=== PATIENT | male | born 1990 | race Caucasian/White ===

== ENCOUNTER 2020-03-06 14:35 | Emergency (ER) | payer BC, OTHER ==
--- NOTE | 2020-03-06 14:39 | ER Document Report ---
ED Medical Screen (RME) - General Chief Complaint: Shoulder Injury Stated Complaint: LEFT SHOULDER INJURY Time Seen by Provider: 03/06/20 14:37 Notes: HPI: 29-year-old [id number] male left shoulder injury fell with arm outstretched while skating. States he believes he has dislocated both shoulders previously but they usually pop back in but did not this time PHYSICAL EXAMINATION: Clinically appears to have an anterior dislocation with deficit over the left shoulder girdle I have greeted and performed a rapid initial assessment of this patient. A comprehensive ED assessment and evaluation of the patient, analysis of test r esults and completion of medical decision making process will be conducted by an additional ED providers.
[2020-03-06] MEDS ORDERED: KETAMINE HCL INJ 500 MG/10 ML VIAL IV ONE (15:09)
--- NOTE | 2020-03-06 15:09 | ER Document Report ---
ED Extremity Problem, Upper - General Chief Complaint: Shoulder Injury Stated Complaint: LEFT SHOULDER INJURY Time Seen by Provider: 03/06/20 14:37 Primary Care Provider: EDY AVELAR MD [ACTIVE STAFF] - Follow up as needed Mode of Arrival: Ambulatory Information source: Patient Notes: ED Medical Screen ([facility] notes) - General Chief Complaint: Shoulder Injury Stated Complaint: LEFT SHOULDER INJURY Time Seen by Provider: 03/06/20 14:37 Notes: HPI: 29-year-old [id number] male left shoulder injury fell with arm outstretched while skating. States he believes he has dislocated both shoulders previously but they usually pop back in but did not this time PHYSICAL EXAMINATION: Clinically appears to have an anterior dislocation with deficit over the left shoulder girdle MY NOTES 29-year-old male who drove himself [facility] [employer] [facility] where he was using a skateboard and fell dislocating his left shoulder. Patient reports he is done this multiple times at least 50 times in the past and he self reduced it. Today the shoulder did not reduce. His mother Alanna reports he has been stating since he was 4 years old. 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 This occurred approximately 1300. Patient denied any LOC. He has full pulses good capillary refill and good sensation to the fingers wrist elbow but obvious deformity to the left shoulder. X-ray reveals anterior dislocation. No obvious fractures. TRAVEL OUTSIDE OF THE [place] IN LAST 30 DAYS: No - HPI Patient complains to provider of: Injury, Swelling, Left, Shoulder Onset: Just prior to arrival Recent injury: No Where: Outdoors - Related Data Allergies/Adverse Reactions: No Known Allergies Allergy (Verified 03/06/20 16:12) Past Medical History - General Information source: Patient, Parent - mother at bedside - Social History Smoking Status: Current Every Day Smoker - Smoker 1 pack/day since he was 16 Cigarette use (# per day): Yes Chew tobacco use (# tins/day): No Smoking Education Provided: Yes Frequency of alcohol use: Occasional - Beer drinker he took a Tylenol this morning because of headache after drinking beer last night Drug Abuse: Marijuana Lives with: Family Family History: Reviewed & Not Pertinent Patient has suicidal ideation: No Patient has homicidal ideation: No Review of Systems - Review of Systems Constitutional: No symptoms reported EENT: No symptoms reported Cardiovascular: No symptoms reported Respiratory: No symptoms reported Gastrointestinal: No symptoms reported Genitourinary: No symptoms reported Male Genitourinary: No symptoms reported Musculoskeletal: See HPI, Joint pain - Left shoulder full pulses good capillary refill as per HPI., Joint swelling - Left shoulder dislocation, Muscle pain Skin: No symptoms reported Hematologic/Lymphatic: No symptoms reported Neurological/Psychological: No symptoms reported Physical Exam - Vital signs Vitals: Temp Pulse Resp BP Pulse Ox 98.1 F 83 20 123/79 98 03/06/20 14:43 03/06/20 14:43 03/06/20 14:43 03/06/20 14:43 03/06/20 14:43 Interpretation: Normal - General General appearance: Appears well, Alert - HEENT Head: Normocephalic, Atraumatic Eyes: Normal Pupils: PERRL - Respiratory Respiratory status: No respiratory distress Chest status: Nontender Breath sounds: Normal Chest palpation: Normal - Cardiovascular Rhythm: Regular Heart sounds: Normal auscultation Murmur: No - Abdominal Inspection: Normal Distension: No distension Bowel sounds: Normal Tenderness: Nontender Organomegaly: No organomegaly - Rectal Prostate: Other - deferred - Genitourinary Scrotum: Other - deferred - Back Back: Normal, Nontender - Extremities General upper extremity: Tender - Limited range of motion left shoulder because of dislocation anteriorly full pulses good cap refill full range of motion wrist fingers elbow and also full range of motion of right upper extremity with good sensation pulses, Normal color, Normal temperature General lower extremity: Normal inspection, Nontender, Normal color, Normal ROM, Normal temperature, Normal weight bearing. No: Marcus's sign - Neurological Neuro grossly intact: Yes Cognition: Normal Orientation: AAOx4 Estefanía Coma Scale Eye Opening: Spontaneous [place] Coma Scale Verbal: Oriented [place] Coma Scale Motor: Obeys Commands [place] Coma Scale Total: 15 Speech: Normal Motor strength normal: LUE, RUE, LLE, RLE Sensory: Normal - Psychological Associated symptoms: Normal affect, Normal mood - Skin Skin Temperature: Warm Skin Moisture: Dry Skin Color: Normal Course - Vital Signs Vital signs: Temp Pulse Resp BP Pulse Ox 98.1 F 66 19 116/84 97 03/06/20 14:43 03/06/20 16:10 03/06/20 16:56 03/06/20 16:56 03/06/20 16:56 Procedures - Joint Reduction/Fracture Care Left Shoulder Time completed: 16:07 Consent obtained: Yes Conscious sedation: Yes Pre-procedure NV exam: Yes Fracture: Other - no obvious fx Post-procedure NV exam: Yes Post-reduction x-ray: Joint reduced Complications: No Critical Care Note - Critical Care Note Comments: Repeat shoulder reveals reduced shoulder on left around 1600. Discharge - Discharge Clinical Impression: shoulder reduction left Dislocation of left shoulder joint Qualifiers: Encounter type: initial encounter Qualified Code(s): S43.005A - Unspecified dislocation of left shoulder joint, initial encounter Condition: Good Disposition: HOME, SELF-CARE Additional Instructions: Follow-up with Dr. Sean Avelar orthopedics; R ICE that is rest ice compression elevation and do not use your left shoulder until cleared by orthopedics. Off work as directed. May take ibuprofen with a meal or ice cream or milk. Forms: Return to Work Referrals: EDY AVELAR MD [ACTIVE STAFF] - Follow up as needed
[2020-03-06] MEDS ORDERED: PROPOFOL INJ 200 MG/20 ML VIAL IV ONE ×2 (15:10→16:15)
[2020-03-06] MEDS ORDERED: NORMAL SALINE 1000 ML 1,000 ML IV ONE (15:10)
--- NOTE | 2020-03-06 15:42 | RADIOLOGY REPORT (SQ) ---
EXAM DESCRIPTION: SHOULDER LEFT 2 OR MORE VIEWS IMAGES COMPLETED DATE/TIME: 03/06/2020 3:01 pm REASON FOR STUDY: dislocation COMPARISON: None. NUMBER OF VIEWS: Two views. TECHNIQUE: Frontal and lateral images acquired of the left shoulder. LIMITATIONS: None. FINDINGS: MINERALIZATION: Normal. BONES: No acute fracture. No worrisome bone lesions. JOINTS: Anterior dislocation of the humeral head. VISUALIZED LUNGS AND RIBS: No pneumothorax. No rib fracture. SOFT TISSUES: No radiopaque foreign body. OTHER: No other significant finding. IMPRESSION: ANTERIOR DISLOCATION OF THE HUMERAL HEAD. NO FRACTURE. TECHNICAL DOCUMENTATION: JOB ID: [id number] 2010 [employer]- All Rights Reserved Reading location - IP/workstation name: [email or web address]
[2020-03-06] MEDS ORDERED: ONDANSETRON HCL INJ/PF 4 MG/2 ML SDV ONE (15:56)
[2020-03-06] MEDS ORDERED: ONDANSETRON HCL INJ/PF 4 MG/2 ML SDV IV ONE (16:11)
[2020-03-06] MEDS ORDERED: FENTANYL CITRATE INJ/PF 100 MCG/2 ML AMPUL IV ONE (16:11)
--- NOTE | 2020-03-06 16:20 | RADIOLOGY REPORT (SQ) ---
EXAM DESCRIPTION: SHOULDER LEFT 1 VIEW IMAGES COMPLETED DATE/TIME: 03/06/2020 4:05 pm REASON FOR STUDY: reduction left shoulder COMPARISON: None. NUMBER OF VIEWS: One view. TECHNIQUE: AP image acquired of the left shoulder. LIMITATIONS: None. FINDINGS: There has been closed reduction of the humeral head dislocation. Positioning appears to b e appropriate. No fracture visualized. IMPRESSION: APPROPRIATE POSITION FOLLOWING CLOSED REDUCTION. TECHNICAL DOCUMENTATION: JOB ID: [id number] 2010 [employer]- All Rights Reserved Reading location - IP/workstation name: [email or web address]
[2020-03-06 17:10] VITALS: BP 116/84
== END 2020-03-06 17:10 | disposition home or self-care (01) ==
LOC: ER 14:35
DX: M24.412 Recurrent dislocation, left shoulder (principal); V00.131A Fall from skateboard, initial encounter; Y93.51 Activity, roller skating (inline) and skateboarding; Y92.39 Other specified sports and athletic area as the place of occurrence of the external cause; F17.210 Nicotine dependence, cigarettes, uncomplicated; F12.10 Cannabis abuse, uncomplicated
CPT/HCPCS: 99284; 99152; 96374; 73020; 73030; 23650; J3490; J2405; J2704